=== PATIENT | female | born 1955 | race Caucasian/White ===

== ENCOUNTER → 2016-11-28 | Outpatient (CLI) | payer OTHER ==
--- NOTE | 2016-11-28 10:01 | REPMRS ---
Patient History The patient states she had a clinical breast exam in 05/2016. Patient is postmenopausal and has history of breast cancer at age 53. Family history of breast cancer in sister at age 53 and prostate cancer in brother at age 53. Malignant lumpectomy of the left breast, December 17, 2008. Malignant stereotatic breast biopsy of the left breast, December 03, 2008. Radiation therapy of the left breast, 2008. Benign lumpectomy of the right breast, 2006. Taking unspecified hormones for 8 years. Digital Woman Screen Mammo: November 28, 2016 - Exam #: [id number] Bilateral CC and MLO view(s) were taken. Technologist: Melissa Johnston, Technologist Prior study comparison: November 25, 2015, digital woman screen mammo performed at [facility]. October 27, 2014, digital woman screen mammo performed at [facility]. FINDINGS: There are scattered fibroglandular densities. There has been no change in the appearance of the mammogram from the prior studies. There is a mild amount of residual fibroglandular tissue which is fairly symmetric. There is no interval development of dominant mass, architectural distortion, or clustered microcalcification suggestive of malignancy. ASSESSMENT: BI-RADS/ACR category 1 mammogram. Negative. Recommendation Routine screening mammogram in 1 year (for women over age 40). This mammogram was interpreted with the aid of an FDA-approved computer-aided dectection system. Electronically Signed By: Joao Streeter MD 11/28/16 [id number]
== END ==
LOC: M WHC 07:52
PROVIDERS: ATTEND Internal Medicine Medical Oncology
DX: Z12.31 Encounter for screening mammogram for malignant neoplasm of breast (principal); Z78.0 Asymptomatic menopausal state; Z85.3 Personal history of malignant neoplasm of breast

== ENCOUNTER → 2017-03-31 | Outpatient (CLI) | payer OTHER ==
[2017-03-31 09:55] LABS: ALBUMIN 3.5 GM/DL (3.2-5.2); ALBUMIN/GLOBULIN RATIO 0.97 (1.00-1.93); ALKALINE PHOSPHATASE 69 U/L (45-117); ALT/SGPT 25 U/L (12-78); ANION GAP 5 MEQ/L (8-16); AST/SGOT 20 U/L (15-37); BILIRUBIN,TOTAL 0.5 MG/DL (0.2-1.0); BLOOD UREA NITROGEN 17 MG/DL (7-18); CALCIUM LEVEL 9.2 MG/DL (8.8-10.2); CARBON DIOXIDE LEVEL 29 MEQ/L (21-32); CHLORIDE LEVEL 109 MEQ/L (98-107); CHOLESTEROL LEVEL 181 MG/DL (<200); CREATININE FOR GFR 0.85 MG/DL (0.55-1.02); GLOMERULAR FILTRATION RATE > 60.0 (>45); GLUCOSE, FASTING 85 MG/DL (80-110); POTASSIUM SERUM 4.7 MEQ/L (3.5-5.1); SODIUM LEVEL 143 MEQ/L (136-145); TOTAL PROTEIN 7.1 GM/DL (6.4-8.2); TRIGLYCERIDES LEVEL 73 MG/DL (<150)
== END ==
LOC: M LAB 07:42
PROVIDERS: ATTEND Family Medicine
DX: Z00.00 Encounter for general adult medical examination without abnormal findings (principal)

== ENCOUNTER → 2017-07-03 | Outpatient (CLI) | payer OTHER | LOC: M WHC 08:25 | DX: Z78.0 Asymptomatic menopausal state (principal); Z79.899 Other long term (current) drug therapy | CPT/HCPCS: 77080 ==

== ENCOUNTER → 2017-12-01 | Outpatient (CLI) | payer OTHER | LOC: M WHC 07:56 | DX: Z12.31 Encounter for screening mammogram for malignant neoplasm of breast (principal); Z85.3 Personal history of malignant neoplasm of breast | CPT/HCPCS: 77067 ==

== ENCOUNTER → 2019-01-14 | Outpatient (CLI) | payer MEDICARE ==
[~2019-01-14] MED LIST: CALT1TAB PO; MULTCAP PO
--- NOTE | 2019-01-14 12:08 | REPMRS ---
Patient History The patient states she had a clinical breast exam in 12/2018. Patient is postmenopausal, has history of cancer in the left breast at age 53, and had previous chest radiation therapy at age 53. Family history of breast cancer at age 53 in sister, prostate cancer at age 53 in brother. Malignant lumpectomy of the left breast, December 17, 2008. Malignant stereotatic breast biopsy of the left breast, December 03, 2008. Radiation therapy of the left breast, 2008. Benign lumpectomy of the right breast, 2006. Taking unspecified hormones for 10 years. 3D TOMOSYNTHESIS WAS PERFORMED. Digital Woman Screen Mammo: January 14, 2019 - Exam #: [id number] Bilateral CC and MLO view(s) were taken. Technologist: Ruchi Samuels, Technologist Prior study comparison: December 01, 2017, bilateral digital woman screen mammo performed at [facility]. November 28, 2016, digital woman screen mammo performed at [facility] [facility]. FINDINGS: There are scattered fibroglandular densities. There has been no change in the appearance of the mammogram from the prior studies. There is a mild amount of residual fibroglandular tissue which is fairly symmetric. There is no interval development of dominant mass, architectural distortion, or clustered microcalcification suggestive of malignancy. Assessment: BI-RADS/ACR category 1 mammogram. Negative Mammogram. Recommendation Routine screening mammogram in 1 year (for women over age 40). This mammogram was interpreted with the aid of an FDA-approved computer-aided dectection system. Electronically Signed By: Joao Streeter MD 01/14/19 [id number]
== END ==
LOC: M WHC 09:26
PROVIDERS: ATTEND Nurse Practitioner Family
DX: Z12.31 Encounter for screening mammogram for malignant neoplasm of breast (principal); Z85.3 Personal history of malignant neoplasm of breast; Z78.0 Asymptomatic menopausal state; Z92.3 Personal history of irradiation; Z80.3 Family history of malignant neoplasm of breast

== ENCOUNTER → 2019-03-14 | Outpatient (REF) | payer MEDICARE ==
[2019-03-19 16:47] LABS: HPV HYBRID CAPTURE II Negative (Negative)
== END ==
LOC: M SFHCWAGY 13:59
PROVIDERS: ATTEND Nurse Practitioner Women's Health
DX: Z12.4 Encounter for screening for malignant neoplasm of cervix (principal)
CPT/HCPCS: 87624; G0101; G0123

== ENCOUNTER 2019-07-19 18:26 | Emergency (ER) | payer MEDICARE, SELFPAY ==
[~2019-07-19] VITALS: Ht 165.1 cm; Wt 88.6 kg
--- NOTE | 2019-07-19 19:28 | REPVR ---
PROCEDURE INFORMATION: Exam: CT Head Without Contrast Exam date and time: 07/19/2019 6:57 PM Age: 64 years old Clinical indication: Injury or trauma; Fall; Initial encounter; Blunt trauma (contusions or hematomas); Additional info: Fall outside, blunt force to head, no loc TECHNIQUE: Imaging protocol: Computed tomography of the head without contrast. Radiation optimization: All CT scans at this facility use at least one of these dose optimization techniques: automated exposure control; mA and/or kV adjustment per patient size (includes targeted exams where dose is matched to clinical indication); or iterative reconstruction. COMPARISON: CT Head without contrast 07/02/2013 1:07 PM FINDINGS: Brain: Age-related volume loss. No acute intracranial hemorrhage, midline shift or mass effect. No evidence of cerebral edema. Ventricles: No hydrocephalus. Bones/joints: Unremarkable. No acute fracture. Sinuses: Visualized sinuses are unremarkable. No fluid levels. Mastoid air cells: Mild partial opacification of the right mastoid tip. Soft tissues: Unremarkable. IMPRESSION: No acute intracranial abnormality. Electronically signed by: Socrates Rider On 07/19/2019 19:28:08 PM
--- NOTE | 2019-07-19 19:31 | REPVR ---
PROCEDURE INFORMATION: Exam: CT Cervical Spine Without Contrast Exam date and time: 07/19/2019 6:57 PM Age: 64 years old Clinical indication: Injury or trauma; Fall; Initial encounter; Blunt trauma; Additional info: Fall outside, blunt force to head, no loc TECHNIQUE: Imaging protocol: Computed tomography images of the cervical spine without contrast. Radiation optimization: All CT scans at this facility use at least one of these dose optimization techniques: automated exposure control; mA and/or kV adjustment per patient size (includes targeted exams where dose is matched to clinical indication); or iterative reconstruction. COMPARISON: No relevant prior studies available. FINDINGS: Vertebrae: Trace anterolisthesis C7 on T1. Vertebral body heights are preserved. Nzup-dn-ycsjgual degenerative change about the dens. Mild prevertebral osteophytosis. There are bilateral facet joint degenerative changes. No acute cervical spine fracture. Discs/Spinal canal/Neural foramina: No definite significant central canal stenosis. Scattered cervical foraminal stenoses. Soft tissues: Unremarkable. Thyroid: 7 mm left thyroid calcified nodule. Lungs: Lung apices are normal. Pleural space: No visible pneumothorax. IMPRESSION: No acute cervical spine fracture. COMMENT: Consistent with the [employer]'s Incidental Findings Committee white paper (J Am Vivian Radiol 2015): In patients aged 35 years and older with an incidental thyroid nodule equal to or greater than 1.[address], MRI or extrathyroidal US, further evaluation with dedicated thyroid US is recommended for patients with normal life expectancy and without comorbidities. For smaller nodules without suspicious features, no further evaluation or follow up is recommended. Electronically signed by: Socrates Rider On 07/19/2019 19:30:59 PM
[2019-07-19 20:32] VITALS: BP 134/82
--- NOTE | 2019-07-19 21:43 | REP ---
Clinical: Trauma with pain and tenderness involving the third digit. Technique: AP, lateral, bilateral oblique views of the left hand. Findings: Age-related osteopenia and early advanced osteoarthritic degenerative changes involving the hand and wrist. No obvious acute fracture identified, but evaluation specifically of the wrist is limited due to technique and osteopenia/degenerative changes. No subcutaneous emphysema or foreign body. Impression: Osteopenia and early advanced osteoarthritic degenerative changes of the hand and wrist. No obvious acute fracture or dislocation identified. If the patient remains symptomatic consider further investigation including CT or MRI as necessary. Electronically Signed by Kunal Boston MD 07/19/2019 09:35 P
--- NOTE | 2019-07-20 07:53 | ED PDOC ---
Post-Departure Follow-Up certitied letter sent to pt re formal read of ct c spine needs fu for thyroid no dule obtain pcp name and fax. if no pcp refer to [facility], give number, fax there Rocky Elliott MD Jul 20, 2019 07:53
== END 2019-07-19 20:38 | disposition home or self-care (01) ==
LOC: M ED 18:26
DX: S66.511A Strain of intrinsic muscle, fascia and tendon of left index finger at wrist and hand level, initial encounter (principal); S00.03XA Contusion of scalp, initial encounter; W01.198A Fall on same level from slipping, tripping and stumbling with subsequent striking against other object, initial encounter; Y92.019 Unspecified place in single-family (private) house as the place of occurrence of the external cause; M85.842 Other specified disorders of bone density and structure, left hand; M19.042 Primary osteoarthritis, left hand

== ENCOUNTER → 2019-08-02 | Outpatient (CLI) | payer MEDICARE ==
--- NOTE | 2019-08-02 13:34 | REPMRS ---
Patient History The patient states she had a clinical breast exam in 2019. Family history of breast cancer at age 53 in sister, prostate cancer at age 53 in brother. Malignant lumpectomy of the left breast, December 17, 2008. Malignant stereotatic breast biopsy of the left breast, December 03, 2008. Radiation therapy of the left breast, 2008. Benign lumpectomy of the right breast, 2006. Taking unspecified hormones for 10 years. Diagnostic Unilateral Mammo: Left Breast - August 02, 2019 - Exam #: [id number] CC and MLO view(s) were taken of the left breast. Technologist: Teodora Castaneda, Technologist Prior study comparison: January 14, 2019, bilateral digital woman screen mammo performed at [facility]. December 01, 2017, bilateral digital woman screen mammo performed at [facility]. November 28, 2016, digital woman screen mammo performed at [facility]. FINDINGS: There are scattered fibroglandular densities. There has been no change in the appearance of the leftThere are stable post treatment changes in the left breast. breast parenchyma in the interval since the prior examination. No mass, architectural distortion, or microcalcific grouping has developed. No suspicious finding. 3-D tomosynthesis shows no additional findings. Assessment: BI-RADS/ACR category 2 mammogram. Benign Findings. Recommendation Routine screening mammogram of both breasts in 6 months. This mammogram was interpreted with the aid of an FDA-approved computer-aided dectection system. Electronically Signed By: Ti Ramhan MD 08/02/19 [id number]
== END ==
LOC: M WHC 12:55
PROVIDERS: ATTEND Internal Medicine Hematology & Oncology
DX: N63.20 Unspecified lump in the left breast, unspecified quadrant (principal)
CPT/HCPCS: 77065; G0279

== ENCOUNTER → 2019-08-08 | Outpatient (CLI) | payer MEDICARE ==
--- NOTE | 2019-08-08 11:55 | REP ---
THYROID SONOGRAPHY: HISTORY: The patient is referred for ultrasound-guided needle biopsy of a calcific thyroid nodule seen on CT study of the neck done July 19, 2019. There is a previous history of breast carcinoma. Comparison CT study of the chest is reviewed with regard to the thyroid from March 13, 2014 and July 02, 2013. SONOGRAPHIC FINDINGS: Thyroid isthmus is 0.4 cm thick. Right lobe dimensions are 3.7 x 1.2 x 1.2 cm. The left thyroid lobe measures 3.6 x 1.2 x 1.2 cm. There is a 2.5 mm cyst and a 1.3 mm cyst in the lower pole of the right lobe. The lesion seen on recent CT study in the left lobe lower pole is observed to be a completely calcified nodule measuring 8 mm in greatest diameter by 6 mm. There is no visible soft tissue component. Indeed on CT study, there is a thick rim of calcification similar in density to cortical bone. The lesion is visible in retrospect dating back to the CT study of July 02, 2013 and is completely unchanged. This is felt to be benign and does not warrant ultrasound-guided needle biopsy, nor would it be feasible to accomplish given the complete calcific nature. There is no extrathyroidal mass or adenopathy. IMPRESSION: There is no suspicious thyroid nodule. There is a stable benign heavily and peripherally calcified nodule in the lower pole, unchanged dating back to July 02, 2013. FNA not warranted. Electronically Signed by Hector Rahman MD 08/08/2019 02:33 P
== END ==
LOC: M IRPRO 10:42
PROVIDERS: ATTEND Internal Medicine Hematology & Oncology
DX: E04.1 Nontoxic single thyroid nodule (principal); Z85.3 Personal history of malignant neoplasm of breast

== ENCOUNTER → 2020-02-05 | Outpatient (CLI) | payer MEDICARE ==
[~2020-02-05] MED LIST changes: +ALBU8.5H INH; +AZIT-12 PO; +BRONCHW PO; +CALCIUM 1200 MG PO; +D31000TA2 PO; +ELIQ5TAB PO; +PRED20TA PO; +SM M250T PO
--- NOTE | 2020-02-12 16:43 | REP ---
CHEST X-RAY: 2-VIEWS HISTORY: Shortness of breath. COMPARISON: Chest x-ray 07/02/2013. FINDINGS: The lungs are symmetrically aerated and clear. The pleural angles are sharp. Heart size is normal. There are surgical clips in the left axillary or left breast soft tissues unchanged. Pulmonary vasculature is not increased. No acute bony abnormality is seen. IMPRESSION: No active disease. MTDD
== END ==
LOC: M WUC 15:19
PROVIDERS: ATTEND Nurse Practitioner Family
DX: R06.02 Shortness of breath (principal)

== ENCOUNTER 2020-02-07 14:55 | Inpatient (IN) | payer MEDICARE ==
[~2020-02-07] VITALS: Ht 162.6 cm; Wt 92.3 kg
[~2020-02-07 14:55] MED LIST changes: -ALBU8.5H INH; -AZIT-12 PO; -BRONCHW PO; -CALCIUM 1200 MG PO; -D31000TA2 PO; -ELIQ5TAB PO; -PRED20TA PO; -SM M250T PO
[2020-02-07] MEDS ORDERED: AZIT-12 PO (15:06)
[2020-02-07] MEDS ORDERED: PRED20TA PO (15:06)
[2020-02-07] MEDS ORDERED: ALBU8.5H INH (15:06)
[2020-02-07 16:59] LABS: BASO % 0.1 % (0.0-1.0); EOS % 0.1 % (0.0-3.0); HEMATOCRIT 40.6 % (36.0-47.0); HEMOGLOBIN 13.6 g/dl (12.0-15.5); LYMPH # 0.9 10^3/uL (1.5-5.0); LYMPH % 5.3 % (24.0-44.0); MEAN CORPUSCULAR HEMOGLOBIN 32.6 pg (27.0-33.0); MEAN CORPUSCULAR HGB CONC 33.5 g/dl (32.0-36.5); MEAN CORPUSCULAR VOLUME 97.4 fl (80.0-96.0); MONO # 0.5 10^3/uL (0.0-0.8); MONO % 3.1 % (0.0-5.0); NEUTROPHILS # 14.6 10^3/uL (1.5-8.5); NEUTROPHILS % 90.4 % (36.0-66.0); PLATELET COUNT, AUTOMATED 275 10^3/uL (150-450); RED BLOOD COUNT 4.17 10^6/uL (4.00-5.40); WHITE BLOOD COUNT 16.2 10^3/uL (4.0-10.0)
[2020-02-07 17:35] LABS: ALBUMIN 3.6 GM/DL (3.2-5.2); ALT/SGPT 29 U/L (12-78); BILIRUBIN,DIRECT < 0.1 MG/DL (0.0-0.2); BILIRUBIN,TOTAL 0.4 MG/DL (0.2-1.0); BLOOD UREA NITROGEN 18 MG/DL (7-18); CALCIUM LEVEL 9.3 MG/DL (8.8-10.2); CARBON DIOXIDE LEVEL 22 MEQ/L (21-32); CHLORIDE LEVEL 110 MEQ/L (98-107); CK-MB VALUE MASS 2.4 NG/ML (<3.6); CPK CREATINE PHOSPHOKINASE 223 U/L (26-192); CREATININE FOR GFR 0.91 MG/DL (0.55-1.30); GLOMERULAR FILTRATION RATE > 60.0 (>45); GLUCOSE, FASTING 116 MG/DL (70-100); MB/CK RELATIVE INDEX 1.08 (< OR =4); NT-PRO BNP 914 PG/ML (<125); POTASSIUM SERUM 4.2 MEQ/L (3.5-5.1); SODIUM LEVEL 141 MEQ/L (136-145); THYROXINE (T4) 10.2 UG/DL (4.5-12.0); TOTAL PROTEIN 8.1 GM/DL (6.4-8.2); TROPONIN I 0.03 NG/ML (< 0.10)
[2020-02-07] MEDS ORDERED: ISOVUE-370 76% 100ML VIAL As Ordered ONE (17:42)
--- NOTE | 2020-02-07 18:52 | REPVR ---
PROCEDURE INFORMATION: Exam: CT Angiography Chest With Contrast Exam date and time: 02/07/2020 5:43 PM Age: 64 years old Clinical indication: Shortness of breath; Additional info: SOB; HX of CA; R/O pe TECHNIQUE: Imaging protocol: Computed tomographic angiography of the chest with intravenous contrast. 3D rendering (Not supervised by radiologist): MIP and/or 3D reconstructed images were created by the technologist. Radiation optimization: All CT scans at this facility use at least one of these dose optimization techniques: automated exposure control; mA and/or kV adjustment per patient size (includes targeted exams where dose is matched to clinical indication); or iterative reconstruction. Contrast material: ISOVUE 370; Contrast volume: 75 ml; Contrast route: INTRAVENOUS (IV); COMPARISON: CT ANGIO CHEST 07/02/2013 2:06 PM FINDINGS: Pulmonary arteries: There is filling defects in bilateral main pulmonary arteries extending to one of the left upper lobe segmental, lingular and multiple left lower lobe segmental and subsegmental pulmonary arteries. Filling defect in multiple right lower lobe segmental and subsegmental pulmonary arteries as well as right upper lobe segmental artery. Aorta: Unremarkable. No aortic aneurysm. No aortic dissection. Lungs: Unremarkable. No consolidation. No masses. Pleural space: Unremarkable. No pneumothorax. No pleural effusion. Heart: There is straightening of the ventricular septum suspicious for right ventricular strain. Lymph nodes: Unremarkable. No enlarged lymph nodes. Bones/joints: Unremarkable. No acute fracture. Soft tissues: Unremarkable. Other findings: Moderate thrombus load. IMPRESSION: Acute pulmonary embolism involving bilateral main pulmonary arteries and the bilateral upper and lower lobe segmental and subsegmental arteries. Moderate thrombus load. Possible right ventricular strain. Electronically signed by: Ry King On 02/07/2020 18:52:06 PM
[2020-02-07] MEDS ORDERED: HEPARIN DRIP 25,000 UNITS in IV 1 EA IV SCH (18:57)
[2020-02-07] MEDS ORDERED: HEPARIN SOD (PORCINE) 5000UNITS/ML 1ML VIAL/SYRINGE IV ONE (19:00)
[2020-02-07 19:30] LABS: INR 0.94; PROTHROMBIN TIME 12.8 SECONDS (11.8-14.0)
[2020-02-07] MEDS ORDERED: ACETAMINOPHEN TAB 650MG DOSE (2X325MG) PO PRN (20:15)
[2020-02-07] MEDS ORDERED: MOM 30ML SUSPENSION UDC PO PRN (20:15)
[2020-02-07 22:30] VITALS: BP 138/68
[2020-02-07] MEDS ORDERED: ENOXAPARIN 100MG/1ML SYRINGE (J1650 PER 10MG) SC SCH (23:00)
--- NOTE | 2020-02-07 23:07 | HPEPDOC ---
[facility] Medical History & Physical Date of Admission Feb 07, 2020 Date of Service: Feb 07, 2020 Primary Care Physician: Juanita Fair Attending Physician: IRIS ARIZMENDI MD History and Physical TIME OF SERVICE: 907 PM CHIEF COMPLAINT: difficulties breathing HISTORY OF PRESENT ILLNESS: This 70 yr old F w presented w c/o dyspnea that begun on Monday or Monday & is worse when she is climbing stairs; she went to an Urgent Care clinic was told that her COVID test was negative and told that she may have COPD. While at doctors appointment today she was found to have low O2 sats in the 80s and a high HR therefore she was sent to the ER for evaluation. CT confirmed the p resence of multiple bilateral PEs. 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 HOME MEDICATIONS: Please see below. PHYSICAL EXAMINATION: Vital Signs Date Time Temp Pulse Resp B/P (MAP) Pulse Ox O2 Delivery O2 Flow Rate FiO2 02/07/20 14:55 98.0 103 16 142/92 (109) 93 Room Air GENERAL APPEARANCE: obese / well developed / NAD HEENT: EOMI CARDIOVASCULAR: RRR/NMRG / no lower extremity edema LUNGS: CTAB on RA ABDOMEN: obese MUSCULOSKELETAL: MARLIN x 4 INTEGUMENT: no pallor NEUROLOGICAL: CN 2-12 intact / speech not dysarthric PSYCHIATRIC: A & Ox 3 able to understand and follow all commands LABORATORY DATA: 02/07/20 16:43 Immature Granulocyte % (Auto) 1.0, Neutrophils (%) (Auto) 90.4H, Lymphocytes (%) (Auto) 5.3L, Monocytes (%) (Auto) 3.1, Eosinophils (%) (Auto) 0.1, Basophils (%) (Auto) 0.1, Neutrophils # (Auto) 14.6H, Lymphocytes # (Auto) 0.9L, Monocytes # (Auto) 0.5, Eosinophils # (Auto) 0.0, Basophils # (Auto) 0.0, Nucleated Red Blood Cells % (auto) 0.0, Anion Gap 9, Glomerular Filtration Rate > 60.0, Calcium Level 9.3, Total Bilirubin 0.4, Direct Bilirubin < 0.1, Aspartate Amino Transf (AST/SGOT) 32, Alanine Aminotransferase (ALT/SGPT) 29, Alkaline Phosphatase 84, Total Creatine Kinase 223H, Creatine Kinase MB 2.4, Creatine Kinase MB Relative Index 1.08, Troponin I 0.03, LD-Zce-U-Type Natriuretic Peptide 914H, Total Protein 8.1, Albumin 3.6, Albumin/Globulin Ratio 0.8L, Thyroid Stimulating Hormone (TSH) 1.440, Thyroxine (T4) 10.2 02/07/20 16:45: Prothrombin Time 12.8, Prothromb Time International Ratio 0.94, Activated Partial Thromboplast Time 29.0 02/07/20 20:20: Lactic Acid Level 1.8 IMAGING: CTA chest IMPRESSION: Acute pulmonary embolism involving bilateral main pulmonary arteries and the bilateral upper and lower lobe segmental and subsegmental arteries. Moderate thrombus load. Possible right ventricular strain. MICROBIOLOGY: Please see below. ASSESSMENT: Ms. Stevens is a 64 yr old F w a PMH of breast cancer in remission who has been feeling short of breath, was found to have hypoxia and tachycardia 2/2 bilateral PEs. PLAN: 1 Low Risk Submissive PE There are reports of a large clot burden on CT and possible RV strain on CT in the setting of euvolemia. Her SBP is > than 90, her HR is > 40 (she is not in shock), her lactic acid is <2 and her Trop is 0.03 therefore she likely has a low risk submissive PE Plan: admit to PCU / stat Echo to confirm whether she has RV strain and r/o clot in right ventricle / f/u serial lactic acid and troponins / switch from heparin drip to weight based lovenox / the day time team may consider reaching out to Hem to confirm whether she should be on lovenox for AC bc of her hx of cancer or can be switched to a NOAC in the morning 2 Hx of breast cancer Plan: f/u w Onc as scheduled 3 Leukocytosis Likely 2/2 prednisone use 4. Obesity BMI 34.7 complicates care Plan: f/u A1C to screen for DM / f/u w PCP for sleep apnea screening DVT Px n/a on AC for PE Dispo: likely home after more than 2 midnights stay LATE ENTRY 1050PM Stat Echo prelim report per estimated right ventricular systolic pressure 47-52, normal RV and LV systolic function, mild aortic valve sclerosis with mild AR Home Medications Scheduled Azithromycin (Azithromycin) 250 Mg Tablet, 250 MG PO DAILY STARTED 02/05/20 X 5 DAYS Cholecalciferol (Vitamin D3) (Vitamin D3) 1,000 Unit Tablet, 2,000 UNITS PO DAILY Magnesium (Magnesium) 250 Mg Tablet, 250 MG PO DAILY Multivitamin (Chewable-Lyla) 1 Each Tab.chew, 2 CHW PO DAILY Prednisone (Prednisone) 20 Mg Tablet, 20 MG PO BID STARTED 02/05/20 X 4 DAYS Scheduled PRN Albuterol Sulfate (Albuterol Sulfate Hfa) 8.5 Gm Hfa.aer.ad, 2 PUFFS INH Q4-6HP PRN for SHORTNESS OF BREATH Allergies Coded Allergies: No Known Allergies (Verified , 12/17/08) A-FIB/CHADSVASC A-FIB History Current/History of A-Fib/PAF?: No Current PO Anticoag Therapy: No IRIS ARIZMENDI MD Feb 07, 2020 23:07
[2020-02-08] VITALS: BP 142/84
[2020-02-08] MEDS ORDERED: SM M250T PO (00:58)
[2020-02-08] MEDS ORDERED: BRONCHW PO (00:58)
[2020-02-08] MEDS ORDERED: D31000TA2 PO (00:58)
[2020-02-08] MEDS ORDERED: ALBUTEROL 90 MCG/ACT 8GM HFA INHALER INH PRN (01:30)
[2020-02-08 04:00] VITALS: BP 120/71
[2020-02-08 05:23] LABS: HEMATOCRIT 40.4 % (36.0-47.0); HEMOGLOBIN 13.3 g/dl (12.0-15.5); MEAN CORPUSCULAR HEMOGLOBIN 32.2 pg (27.0-33.0); MEAN CORPUSCULAR HGB CONC 32.9 g/dl (32.0-36.5); MEAN CORPUSCULAR VOLUME 97.8 fl (80.0-96.0); PLATELET COUNT, AUTOMATED 259 10^3/uL (150-450); RED BLOOD COUNT 4.13 10^6/uL (4.00-5.40); WHITE BLOOD COUNT 11.9 10^3/uL (4.0-10.0)
[2020-02-08 05:55] LABS: BLOOD UREA NITROGEN 16 MG/DL (7-18); CALCIUM LEVEL 8.6 MG/DL (8.8-10.2); CARBON DIOXIDE LEVEL 26 MEQ/L (21-32); CHLORIDE LEVEL 110 MEQ/L (98-107); CREATININE FOR GFR 0.87 MG/DL (0.55-1.30); GLOMERULAR FILTRATION RATE > 60.0 (>45); GLUCOSE, FASTING 85 MG/DL (70-100); MAGNESIUM LEVEL 2.4 MG/DL (1.8-2.4); SODIUM LEVEL 142 MEQ/L (136-145); TROPONIN I 0.02 NG/ML (< 0.10)
[2020-02-08 08:00] VITALS: BP 140/90; O2SAT 95
[2020-02-08 09:00] VITALS: O2SAT 96
[2020-02-08] MEDS ORDERED: predniSONE 20 MG TAB PO SCH (09:00)
[2020-02-08 10:00] VITALS: O2SAT 96
[2020-02-08] MEDS ORDERED: HEPARIN SOD (PORCINE) 5000UNITS/ML 1ML VIAL/SYRINGE IV PRN (10:45)
[2020-02-08 12:00] VITALS: BP 132/78
[2020-02-08] MEDS ORDERED: HEPARIN DRIP 25,000 UNITS in IV 1 EA IV SCH (12:00)
[2020-02-08 12:36] LABS: HEMATOCRIT 41.2 % (36.0-47.0); HEMOGLOBIN 13.8 g/dl (12.0-15.5); MEAN CORPUSCULAR HEMOGLOBIN 33.1 pg (27.0-33.0); MEAN CORPUSCULAR HGB CONC 33.5 g/dl (32.0-36.5); MEAN CORPUSCULAR VOLUME 98.8 fl (80.0-96.0); PLATELET COUNT, AUTOMATED 283 10^3/uL (150-450); RED BLOOD COUNT 4.17 10^6/uL (4.00-5.40); WHITE BLOOD COUNT 9.4 10^3/uL (4.0-10.0)
[2020-02-08 12:53] LABS: INR 1.05; PROTHROMBIN TIME 13.9 SECONDS (11.8-14.0)
[2020-02-08 12:54] LABS: PARTIAL THROMBOPLASTIN TIME 33.9 SECONDS (25.0-38.4)
--- NOTE | 2020-02-08 13:48 | HPEPDOC ---
[facility] Medical History & Physical Date of Admission Feb 07, 2020 Date of Service: Feb 08, 2020 Attending Physician: RAMON ARELLANO MD Vital Signs Vital Signs Date Time Temp Pulse Resp B/P (MAP) Pulse Ox O2 Delivery O2 Flow Rate FiO2 02/08/20 12:00 97.8 75 26 132/78 (96) 97 Nasal Cannula 2.0 Laboratory Data Labs 24H Laboratory Tests 2 02/07/20 16:43: Immature Granulocyte % (Auto) 1.0, Neutrophils (%) (Auto) 90.4H, Lymphocytes (%) (Auto) 5.3L, Monocytes (%) (Auto) 3.1, Eosinophils (%) (Auto) 0.1, Basophils (%) (Auto) 0.1, Neutrophils # (Auto) 14.6H, Lymphocytes # (Auto) 0.9L, Monocytes # (Auto) 0.5, Eosinophils # (Auto) 0.0, Basophils # (Auto) 0.0, Nucleated Red Blood Cells % (auto) 0.0, Anion Gap 9, Glomerular Filtration Rate > 60.0, Calcium Level 9.3, Total Bilirubin 0.4, Direct Bilirubin < 0.1, Aspartate Amino Transf (AST/SGOT) 32, Alanine Aminotransferase (ALT/SGPT) 29, Alkaline Phosphatase 84, Total Creatine Kinase 223H, Creatine Kinase MB 2.4, Creatine Kinase MB Relative Index 1.08, Troponin I 0.03, RN-Chl-V-Type Natriuretic Peptide 914H, Total Protein 8.1, Albumin 3.6, Albumin/Globulin Ratio 0.8L, Th yroid Stimulating Hormone (TSH) 1.440, Thyroxine (T4) 10.2 02/07/20 16:45: Prothrombin Time 12.8, Prothromb Time International Ratio 0.94, Activated Partial Thromboplast Time 29.0 02/07/20 20:20: Lactic Acid Level 1.8 02/08/20 05:11: Nucleated Red Blood Cells % (auto) 0.0, Anion Gap 6L, Glomerular Filtration Rate > 60.0, Calcium Level 8.6L, Troponin I 0.02#, Lactic Acid Level 0.9, Magnesium Level 2.4 02/08/20 12:15: Nucleated Red Blood Cells % (auto) 0.0, Prothrombin Time 13.9, Prothromb Time International Ratio 1.05, Activated Partial Thromboplast Time 33.9 CBC/BMP Laboratory Tests 02/07/20 16:43 02/08/20 05:11 02/08/20 12:15 Microbiology Microbiology 02/08/20 Respiratory Virus Panel (PCR) ([facility]) - Final, Complete Home Medications Scheduled Cholecalciferol (Vitamin D3) (Vitamin D3) 1,000 Unit Tablet, 2,000 UNITS PO D AILY Magnesium (Magnesium) 250 Mg Tablet, 250 MG PO DAILY Multivitamin (Chewable-Lyla) 1 Each Tab.chew, 2 CHW PO DAILY Scheduled PRN Albuterol Sulfate (Albuterol Sulfate Hfa) 8.5 Gm Hfa.aer.ad, 2 PUFFS INH Q4-6HP PRN for SHORTNESS OF BREATH Allergies Coded Allergies: No Known Allergies (Verified , 12/17/08) RAMON ARELLANO MD Feb 08, 2020 13:48
--- NOTE | 2020-02-08 17:22 | DS.PDOC ---
Discharge Summary General Date of Admission Feb 07, 2020 at 20:01 Date of Discharge 02/08/20 Attending Physician: RAMON ARELLANO MD Discharge Summary PROCEDURES PERFORMED DURING STAY: None. ADMITTING/DISCHARGE DIAGNOSES: 1. Acute PE b/l pulm arteries, b/l upper/lower segmental/subsegmental arteries 2. Acute DVT LLE 3. H/o Breast ca 4. H/o Obesity COMPLICATIONS/CHIEF COMPLAINT: SOB HISTORY OF PRESENT ILLNESS/HOSPITAL COURSE: As per medical records: This 70 yr old F w PMHx ER/CA + HER 2 Neg Infiltrating ductal carcinoma of the left breast diagnosed 11 yrs ago in remission s/p radi ation therapy, lumpectomy and adjuvant hormonal tx presented w c/o dyspnea that begun on Monday or Monday & is worse when she is climbing stairs; she went to an Urgent Care clinic was told that her COVID test was negative and told that she may have COPD. While at doctors appointment today she was found to have low O2 sats in the 80s and a high HR therefore she was sent to the ER for evaluatio n. CT confirmed the presence of multiple bilateral PEs. Discussed case with Dr. Chery at [facility] who recommends transfer for possible thrombolysis. Appreciate Dr. Charles for accepting pt. Pt is hemodynamically stable. Lovenox changed to heparin drip for possible intervention at [facility]. Discussed risks/benefits of anticoagulation with pt who is agreeable. Discussed with daughter and patient, who are agreeable. +DVT as LE US; defer need for IVC until eval at [facility] given moderate thrombus burden on CTA chest. A MOLST form was also completed to reflect the patient's wishes of DNR/DNI. DISCHARGE MEDICATIONS: Please see below. ALLERGIES: Please see below. PHYSICAL EXAMINATION ON DISCHARGE: Vitals: (see below) General: No acute distress, laying comfortably in bed. HEENT: Moist mucous membranes. Neck: No JVD or lymphadenopathy Cardiac: RRR, No murmurs Pulm: Diminished at the bases b/l. No wheezing, rhonchi Abd: NT/ND + BS Ext: No edema or cyanosis LABORATORY DATA: Please see below. IMAGING: CTA Chest 02/08/20 IMPRESSION: Acute pulmonary embolism involving bilateral main pulmonary arteries and the bilateral upper and lower lobe segmental and subsegmental arteries. Moderate thrombus load. Possible right ventricular strain. I spoke with the radiologist Dr. Morales who notes RV-LV ratio is 1 and is unable to put an addendum onto the current read. U/S LE Pre-wick + DVT LLE distal femoral superficial PROGNOSIS: Fair ACTIVITY: As tolerated. DIET: Regular DISCHARGE PLAN/DISPOSITION: [facility] under care of Dr. Charles DISCHARGE INSTRUCTIONS: 1. F/u with PCP, Heme/onc as recommended by [facility]. DISCHARGE CONDITION: Stable. TIME SPENT ON DISCHARGE: 45 minutes. Vital Signs/I&Os Vital Signs Date Time Temp Pulse Resp B/P (MAP) Pulse Ox O2 Delivery O2 Flow Rate FiO2 02/08/20 12:00 2.0 02/08/20 12:00 97.8 75 26 132/78 (96) 97 Nasal Cannula I&O- Last 24 Hours up to 6 AM 02/08/20 06:00 Intake Total 448 ml Output Total 0 ml Balance 448 ml Laboratory Data Labs 24H Laboratory Tests 2 02/07/20 20:20: Lactic Acid Level 1.8 02/08/20 05:11: Lactic Acid Level 0.9, Nucleated Red Blood Cells % (auto) 0.0, Anion Gap 6L, Glomerular Filtration Rate > 60.0, Calcium Level 8.6L, Magnesium Level 2.4, Troponin I 0.02# 02/08/20 12:15: Nucleated Red Blood Cells % (auto) 0.0, Prothrombin Time 13.9, Prothromb Time International Ratio 1.05, Activated Partial Thromboplast Time 33.9 CBC/BMP Laboratory Tests 02/08/20 05:11 02/08/20 12:15 Microbiology Microbiology 02/08/20 Respiratory Virus Panel (PCR) ([facility]) - Final, Complete Discharge Medications Scheduled Cholecalciferol (Vitamin D3) (Vitamin D3) 1,000 Unit Tablet, 2,000 UNITS PO DAILY, (Reported) Magnesium (Magnesium) 250 Mg Tablet, 250 MG PO DAILY, (Reported) Multivitamin (Chewable-Lyla) 1 Each Tab.chew, 2 CHW PO DAILY, (Reported) Scheduled PRN Albuterol Sulfate (Albuterol Sulfate Hfa) 8.5 Gm Hfa.aer.ad, 2 PUFFS INH Q4-6HP PRN for SHORTNESS OF BREATH, (Reported) Allergies Coded Allergies: No Known Allergies (Verified , 12/17/08) RAMON ARELLANO MD Feb 08, 2020 17:22
--- NOTE | 2020-02-11 13:55 | ECHO ---
DATE OF PROCEDURE: 02/07/2020 Age: 64 Gender: Female Height: 160 cm Weight: 91 kg REFERRING PHYSICIAN: Juanita Zarate MD INDICATION: Pulmonary embolism. MEASUREMENTS: 2D Measurements: Left atrium 3.5 cm Interventricular septum 1.10 cm Posterior wall 1.20 cm Left ventricle diastole 4.1 cm Aortic root 3.0 cm Inferior vena cava 0.9 cm (more than 50% respiratory variation) Doppler Measurements: Trace aortic regurgitation Aortic valve velocity 103 cm/s Very mild mitral regurgitation Mitral E velocity 74.6 cm/s Mitral A velocity 96.0 cm/s Mild tricuspid regurgitation Estimated right ventricular systolic pressure 47-52 mmHg Estimated right atrial pressure 5-10 mmHg No pulmonic regurgitation Pulmonary acceleration time 53 msec MITRAL ANNULAR TISSUE DOPPLER E prime septal 8.2 cm/s, E prime lateral 7.9 cm/s DESCRIPTION: Rhythm was sinus. Image quality was moderately technically difficult. This was a 2D, M-mode, color flow Doppler, and pulsed wave Doppler examination including mitral annular tissue Doppler. CONCLUSIONS: 1. Suggestive of moderate elevation of estimated right ventricular systolic pressure (47-52 mmHg). Mild tricuspid regurgitation. Normal right ventricle size and systolic function. 2. Normal left ventricle internal dimensions and wall thickness. Normal regional LV wall motion and wall thickening. Normal LV systolic function. LVEF 55% by visual estimate. Grade 1 LV diastolic dysfunction (impaired relaxation filling pattern). 3. Mild aortic valve sclerosis with a 3-cuspid aortic valve. Trace aortic regurgitation. 4. No pericardial effusion. 5. Otherwise normal appearing echocardiogram Doppler findings. [facility]
[2020-02-19] MEDS ORDERED: ELIQ5TAB PO (09:17)
--- NOTE | 2020-02-20 15:40 | ECGEPIP ---
[facility] - ED Test Date: 2020-02-07 Pat Name: SERENA HERNANDEZ Department: Room: [place] [address] Gender: Female [employer]: PRIMO : 1955 Requested By: RASHEL VALE Order Number: [id number] Reading MD: Radha Smalls Measurements Intervals Capac Rate: 86 P: 52 NJ: 124 QRS: -33 QRSD: 92 T: 67 QT: 352 QTc: 423 Interpretive Statements SINUS RHYTHM MARKED LEFT AXIS DEVIATION NONSPECIFIC T-WAVE ABNORMALITY ABNORMAL ECG SEE SCANNED DOWNTIME REPORT
--- NOTE | 2020-03-06 15:17 | REP ---
BILATERAL LOWER EXTREMITY DOPPLER ULTRASOUND CLINICAL: Pulmonary embolus. TECHNIQUE: Real-time king scale and color Doppler evaluation using linear high frequency transducer. FINDINGS: Right lower extremity is normal and without evidence for deep venous thrombosis. Left lower extremity demonstrates acute thrombus involving the distal superficial femoral vein through the popliteal vein and peroneal trunk. IMPRESSION: * Deep venous thrombosis involving the left lower extremity. * Normal right lower extremity without deep veinous thrombosis. MTDD
[2020-03-25] MEDS ORDERED: CALCIUM 1200 MG PO (13:43)
== END 2020-02-08 15:43 | disposition short-term general hospital (02) | DRG 176 ==
LOC: M ED 14:55 → M ED INP 20:01 → ENRESERV 21:04 → CANRESERV 21:04 → ENRESERV 21:56 → M PCU 22:20
PROVIDERS: ADMIT Internal Medicine; ATTEND Internal Medicine
DX: I26.99 Other pulmonary embolism without acute cor pulmonale (principal); I82.412 Acute embolism and thrombosis of left femoral vein; Z85.3 Personal history of malignant neoplasm of breast; E66.9 Obesity, unspecified; Z79.899 Other long term (current) drug therapy; Z68.34 Body mass index [BMI] 34.0-34.9, adult

== ENCOUNTER → 2020-02-25 | Outpatient (CLI) | payer MEDICARE ==
[~2020-02-25] MED LIST changes: +ALBU8.5H INH; +AZIT-12 PO; +BRONCHW PO; +CALCIUM 1200 MG PO; +D31000TA2 PO; +ELIQ5TAB PO; +PRED20TA PO; +SM M250T PO
--- NOTE | 2020-02-25 12:28 | REPMRS ---
Patient History The patient states she had a clinical breast exam in 2019. Family history of breast cancer at age 53 in sister, prostate cancer at age 53 in brother. Malignant lumpectomy of the left breast, December 17, 2008. Malignant stereotatic breast biopsy of the left breast, December 03, 2008. Radiation therapy of the left breast, 2008. Benign lumpectomy of the right breast, 2006. Taking unspecified hormones for 10 years. Digital Woman Screen Mammo: February 25, 2020 - Exam #: [id number] Bilateral CC and MLO view(s) were taken. Technologist: Teodora Castaneda, Technologist Prior study comparison: August 02, 2019, left breast diagnostic unilateral mammo performed at [facility]. January 14, 2019, bilateral digital woman screen mammo performed at [facility]. December 01, 2017, bilateral digital woman screen mammo performed at [facility]. November 28, 2016, digital woman screen mammo performed at [facility]. FINDINGS: The breast tissue is almost entirely fat. The Volpara volumetric breast density category is: A. There are stable post treatment changes in the left breast. There has been no change in the appearance of the mammogram from the prior studies. There is no interval development of dominant mass, architectural distortion, or grouped microcalcification typical of malignancy. 3-D tomosynthesis shows no additional findings. Assessment: BI-RADS/ACR category 2 mammogram. Benign Findings. Recommendation Routine screening mammogram of both breasts in 1 year (for women over age 40). This mammogram was interpreted with the aid of an FDA-approved computer-aided dectection system. Electronically Signed By: Ti Rahman MD 02/25/20 [id number]
== END ==
LOC: M WHC 10:13
PROVIDERS: ATTEND Internal Medicine Medical Oncology
DX: Z12.31 Encounter for screening mammogram for malignant neoplasm of breast (principal); Z80.3 Family history of malignant neoplasm of breast; Z86.018 Personal history of other benign neoplasm; Z85.3 Personal history of malignant neoplasm of breast; Z92.3 Personal history of irradiation; Z79.899 Other long term (current) drug therapy

== ENCOUNTER → 2020-02-28 | Outpatient (CLI) | payer MEDICARE ==
--- NOTE | 2020-03-11 11:27 | REP ---
WHOLE BODY RADIONUCLIDE BONE SCAN HISTORY: Breast carcinoma diagnosed in 2008. Shoulder pain. History of a fall. Patient gives a history of a fall hurting her tailbone. COMPARISON: No comparison bone scan. TECHNIQUE: 22.0 mCi of Technetium-99m MDP is injected and standard whole body bone scan imaging is acquired. SCINTIGRAPHIC FINDINGS: There is uptake in bilaterally kidneys and in the urinary bladder. There is a horizontally oriented area of increased uptake transversely across the sacrococcygeal junction consistent with recent tailbone fracture. There is osteoarthritic uptake in each midfoot, bilaterally in the knees, bilaterally in the acromioclavicular joints, and in the left posterior and right posterior cervical spine facets. Mild degenerative uptake is seen in the lumbar spine as well. There is no evidence to suggest skeletal metastatic disease. IMPRESSION: No evidence of skeletal metastasis. Findings consistent with recent sacrococcygeal fracture. MTDD
== END ==
LOC: M RAD 08:12
PROVIDERS: ATTEND Internal Medicine Medical Oncology
DX: M25.519 Pain in unspecified shoulder (principal); Z85.3 Personal history of malignant neoplasm of breast
CPT/HCPCS: 78306; A9503

== ENCOUNTER → 2020-03-02 | Outpatient (CLI) | payer MEDICARE ==
[~2020-03-02] MED LIST changes: +PROHANCE 279.3MG/ML 15ML VIAL As Ordered ONE; +PROHANCE 279.3MG/ML 5ML VIAL As Ordered ONE
--- NOTE | 2020-03-11 11:29 | REP ---
MRI STUDY OF THE BRAIN WITHOUT AND WITH INTRAVENOUS (IV) GADOLINIUM HISTORY: Falls. Breast cancer. Shoulder pain. COMPARISON: Brain CT study from 07/19/2019. No comparison brain MRI. TECHNIQUE: Axial, coronal, and sagittal imaging planes are utilized. Sequences include spin echo, fast spin echo, FLAIR, and diffusion-weighted sequences. Pre- and postcontrast imaging is acquired. 18 mL of intravenous ProHance is administered. MRI FINDINGS: No bony calvarial lesion is appreciated. No intraorbital abnormality is seen. The skull base soft tissues are unremarkable. There is no MR evidence of significant paranasal sinus disease. There is mild generalized volume loss. There is no evidence of intracranial hemorrhage. Diffusion-weighted scans show no evidence to suggest acute ischemia. No extra-axial fluid collection or mass is seen. Postcontrast images demonstrate enhancement and normal vasculature. No abnormal intracranial contrast enhancement is appreciated. IMPRESSION: There is no evidence of intracranial metastasis. Mild generalized volume loss. Otherwise negative. MTDD
== END ==
LOC: M RAD 10:02
PROVIDERS: ATTEND Internal Medicine Medical Oncology
DX: C50.919 Malignant neoplasm of unspecified site of unspecified female breast (principal); Z91.81 History of falling; I67.9 Cerebrovascular disease, unspecified; Z79.899 Other long term (current) drug therapy
CPT/HCPCS: 36415; 70553; 82306; 82607; 83655; 84439; 84443; 86780; A9576; G0463

== ENCOUNTER → 2020-03-02 | Outpatient (CLI) | payer MEDICARE ==
[~2020-03-02] MED LIST changes: -PROHANCE 279.3MG/ML 15ML VIAL As Ordered ONE; -PROHANCE 279.3MG/ML 5ML VIAL As Ordered ONE
[2020-03-02 14:48] LABS: TOTAL 25(OH) VITAMIN D 56.4 NG/ML (30.0-100.0); VITAMIN B12 LEVEL 491 PG/ML (247-911)
[2020-03-02 14:52] LABS: FREE T4 1.03 NG/DL (0.76-1.46)
== END ==
LOC: M PLALAB 09:41
PROVIDERS: ATTEND Physician Assistant Medical
DX: I67.9 Cerebrovascular disease, unspecified (principal)

== ENCOUNTER → 2020-03-05 | Outpatient (CLI) | payer MEDICARE ==
--- NOTE | 2020-03-11 11:30 | REP ---
MRI OF THE LEFT SHOULDER WITHOUT CONTRAST: HISTORY: Left shoulder pain. History of falls. COMPARISON: None. TECHNIQUE: Axial, oblique coronary and oblique sagittal imaging planes utilized. T1 and T2-weighted scans are included with and without fat-saturation in the usual fashion. FINDINGS: There is a moderate glenohumeral joint effusion. There is low T2 intermediate T1 signal intensity material in the axillary recess. I cannot exclude loose bodies. This is somewhat ill-defined. There is a subacromial subdeltoid bursal effusion as well. There is a partial thickness intrasubstance T2-weighted hyperintense tear in the mid-supraspinatus tendon at 12 to 1 o'clock on the humeral head on oblique coronary T1-weighted scans along its bursal surface. There is tendinitis/tendinosis change throughout the remainder of the supraspinatus tendon. No definite full thickness tear is appreciated. There is AC joint osteoarthritic hypertrophy. Cortical and medullary bone signal intensity are otherwise normal. The biceps tendon is in the bony bicipital groove and appears intact. the infraspinatus and subsequently tendons are intact. There is some fraying of the posterior labral cartilage. No solange anterior or posterior labral cartilage tear is seen. The superior labral cartilage appears intact. IMPRESSION: Moderate size glenohumeral joint effusion with possible intraarticular loose bodies versus proteinaceous debris in the axillary recess. Subacromial/subdeltoid bursal effusion. Partial thickness supraspinatus tear with diffuse tendinosis change. AC joint osteoarthritis. MTDD
== END ==
LOC: M RAD 06:44
PROVIDERS: ATTEND Nurse Practitioner Family
DX: M25.512 Pain in left shoulder (principal); M25.412 Effusion, left shoulder; M19.012 Primary osteoarthritis, left shoulder

== ENCOUNTER → 2020-03-17 | Outpatient (CLI) | payer MEDICARE ==
--- NOTE | 2020-03-19 13:28 | DEXA ---
AP SPINE L1 - L4 1.246 0.4 2.0 LT FEMUR TOTAL 1.024 0.1 1.4 LT NECK 1.025 -0.1 1.5 RT FEMUR TOTAL 0.972 -0.3 1.0 RT NECK 0.945 -0.7 0.9 TOTAL BODY TOTAL OTHER COMMENTS: Normal Bone Densitometry of the spine and hips. The density of the spine has decreased 5.1% since the initial exam on 05/19/09 The increased 4.8% since the most recent exam on 07/03/2017. The density of the left hip has decreased 3.6% since the initial exam on 05/19/09. The density of the left hip has increased 2.9% since the most recent exam on 07/03/2017. The density of the right hip has decreased 9.4% since the initial exam on 05/19/09. The density of the right hip has decreased 2.9% since the most recent exam on 07/03/2017. FOLLOW-UP: Recommendation for the next bone density exam: 5 years. ESTEFANY
== END ==
LOC: M WHC 08:38
PROVIDERS: ATTEND Nurse Practitioner Women's Health
DX: Z13.820 Encounter for screening for osteoporosis (principal); Z79.810 Long term (current) use of selective estrogen receptor modulators (SERMs); Z78.0 Asymptomatic menopausal state
CPT/HCPCS: 77080; G0463

== ENCOUNTER → 2020-03-27 | Outpatient (CLI) | payer MEDICARE ==
--- NOTE | 2020-03-27 16:02 | REP ---
INDICATION: NON TOXIC GOITER US1/CT2 . COMPARISON: Comparison sonography August 08, 2019.. TECHNIQUE: High-resolution bilateral thyroid sonography. FINDINGS: Thyroid isthmus is 0.4 cm thick. Right lobe dimensions by ultrasound today are 3.5 x 1.2 x 1.3 cm. Left lobe measurements are 3.7 x 1.3 x 1.6 cm. The gland is slightly heterogeneous. There is a heavily calcified 7 mm nodule in the left lobe of the thyroid unchanged from the comparison study. There is a tiny 2 mm cyst in the upper pole on the right and a 5 mm cyst is seen in the lower pole on the right. These findings are unchanged from the comparison study. No new solid nodule is seen. IMPRESSION: Stable findings as above. <Electronically signed by Ti Rahman > 03/27/20 [id number]
== END ==
LOC: M RAD 14:34
PROVIDERS: ATTEND Otolaryngology
DX: E04.9 Nontoxic goiter, unspecified (principal)

== ENCOUNTER → 2020-03-27 | Outpatient (CLI) | payer MEDICARE ==
[~2020-03-27] MED LIST changes: +GASTROGRAFIN SOLUTION 30ML (Q9963) As Ordered ONE; +ISOVUE-370 76% 100ML VIAL As Ordered ONE
--- NOTE | 2020-03-27 17:23 | REP ---
INDICATION: BREAST CA W/ ABD PAIN. COMPARISON: None TECHNIQUE: Axial contrast-enhanced images from the lung bases to the pubic symphysis using 100 cc Isovue 370 intravenous contrast material. Delayed images were obtained as well as coronal and sagittal reformations.. Oral contrast administered prior to imaging. FINDINGS: Liver, spleen, pancreas, bilateral adrenal glands and kidneys are normal. The gallbladder is markedly distended without pericholecystic fluid or obvious gallstones and no evidence for biliary ductal dilatation. The enteric system including stomach, small, and large bowel appears normal. No evidence for obstruction or acute inflammatory process. Normal terminal ileum and appendix are identified in the right lower quadrant. Pelvis demonstrates normal bladder and age-appropriate uterus/adnexa. No ascites. No free air. No intraperitoneal or retroperitoneal adenopathy. Abdominal aorta and vasculature appear normal. Musculoskeletal structures are intact and without acute osseous abnormality. Lung bases demonstrate chronic appearing interstitial changes. IMPRESSION: 1. Hydropic appearance of the gallbladder without evidence for acute cholecystitis by CT evaluation. 2. No further acute abdominopelvic pathology appreciated. No evidence for metastatic disease. <Electronically signed by Kunal Boston > 03/27/20 [id number]
== END ==
LOC: M RAD 14:39
PROVIDERS: ATTEND Internal Medicine Medical Oncology
DX: C50.912 Malignant neoplasm of unspecified site of left female breast (principal); R10.9 Unspecified abdominal pain; E04.9 Nontoxic goiter, unspecified
CPT/HCPCS: 74177; 76536; Q9963; Q9967

== ENCOUNTER → 2020-04-15 | Outpatient (CLI) | payer MEDICARE ==
[~2020-04-15] MED LIST changes: -GASTROGRAFIN SOLUTION 30ML (Q9963) As Ordered ONE; -ISOVUE-370 76% 100ML VIAL As Ordered ONE
--- NOTE | 2020-04-15 11:07 | REP ---
INDICATION: ABN FINDINGS OF DX IMAGING MAIN REG. COMPARISON: Comparison CT study March 27, 2020. This was read as showing dilated gallbladder.. TECHNIQUE: Right upper quadrant sonography. FINDINGS: Real-time scanning through the right upper quadrant the abdomen demonstrates a dilated gallbladder containing shadowing calculi in its dependent portion. Gallbladder wall is not thickened. No pericholecystic fluid is seen. The stones measure up to 13 mm in size individually. There are multiple calculi. The common bile duct is normal measuring 0.5 cm in greatest diameter. No focal liver lesion is seen. There is no evidence of ascites. Limited views of pancreas show no abnormality. No mass or hydronephrosis is seen in the right kidney. Right renal dimensions are 9.3 x 4.5 x 3.4 cm. IMPRESSION: Dilated gallbladder containing multiple shadowing calculi. No wall thickening. Otherwise negative. <Electronically signed by Ti Rahman > 04/15/20 1105
== END ==
LOC: M RAD 08:32
PROVIDERS: ATTEND Internal Medicine Gastroenterology
DX: R93.89 Abnormal findings on diagnostic imaging of other specified body structures (principal)

== ENCOUNTER → 2020-11-20 | Outpatient (CLI) | payer MEDICARE, OTHER ==
--- NOTE | 2020-11-20 19:19 | REP ---
INDICATION: F/U GOITER. COMPARISON: Comparison sonography is from March 27, 2020. Comparison is made with prior chest CT studies dated February 07, 2020 and March 13, 2014.. TECHNIQUE: High-resolution bilateral thyroid sonography is performed. FINDINGS: Thyroid isthmus is 3 mm thick. Right lobe dimensions by today's sonography are 3.5 x 1.2 x 1.2 cm. The left lobe measures 3.9 x 1.2 x 1.1 cm. The thyroid gland is not considered enlarged. There is a densely calcified shadowing nodule in the left lobe measuring 1.1 x 1.1 x 0.9 cm. This is visible on comparison CT study from 2013. There is a 0.2 cm cyst in the upper pole on the right. On previous study, this measured 0.5 cm. There is a subtle hypoechoic nodule in the lower pole of the right gland visible today measuring 1.0 x 1.1 x 1.0 cm. This is visible and is felt to be unchanged from the comparison CT study of March 13, 2014 as well. This was not visualized sonographically on March 27, 2020 but is felt to correspond with remote prior CT as well as recent prior CT imaging. IMPRESSION: Stable thyroid nodules as above. <Electronically signed by Ti Rahman > 11/20/20 [id number]
== END ==
LOC: M RAD 13:14
PROVIDERS: ATTEND Otolaryngology
DX: E04.9 Nontoxic goiter, unspecified (principal)

== ENCOUNTER → 2020-12-03 | Outpatient (CLI) | payer MEDICARE | LOC: M LABSMTC 10:03 | PROVIDERS: ATTEND Specialist | DX: Z20.822 Contact with and (suspected) exposure to COVID-19 (principal) ==

== ENCOUNTER → 2021-01-06 | Outpatient (CLI) | payer MEDICARE ==
[~2021-01-06] MED LIST changes: +LIDOCAINE 1% MDV 20ML VIAL As Ordered ONE
[2021-01-06 14:20] VITALS: BP 136/68
--- NOTE | 2021-01-07 07:53 | REP ---
INDICATION: GAMA THYROID NODULES. COMPARISON: None. TECHNIQUE: The procedure was performed under the direct supervision of Dr. Rahman. The patient has a history of a densely calcified shadowing nodule in the left lobe of the thyroid measuring 1.1 x 1.1 x 0.9 cm as well as a subtle hypoechoic nodule in the lower pole of the right thyroid measuring 1 x 1.1 x 1 cm seen on a previous ultrasound dated 11/20/2020. The risks and benefits of the procedure were explained to the patient and informed consent was obtained. The thyroid nodules were localized using ultrasound guidance. The skin was prepped and draped in a sterile fashion. 6 mL of 1% lidocaine was used as a local anesthetic. The right thyroid nodule was addressed 1st. Using ultrasound guidance 4 fine-needle aspirations were obtained using 25 gauge needles. The left thyroid nodule was then addressed. Using ultrasound guidance 4 fine-needle aspirations were obtained using 25 gauge needles. The patient tolerated the procedure well and there were no immediate complications. After the appropriate amount to monitor convalescence the patient was discharged from the department. FINDINGS: None IMPRESSION: Ultrasound-guided bilateral thyroid biopsy. <Electronically signed by Gavin Stearns > 01/06/21 [id number] <Electronically signed by Ti Rahman > 01/07/21 [id number]
== END ==
LOC: M IRPRO 12:24
PROVIDERS: ATTEND Otolaryngology
DX: D34 Benign neoplasm of thyroid gland (principal); E04.9 Nontoxic goiter, unspecified

== ENCOUNTER → 2021-01-21 | Outpatient (CLI) | payer MEDICARE, OTHER ==
[~2021-01-21] MED LIST changes: -LIDOCAINE 1% MDV 20ML VIAL As Ordered ONE
[2021-01-21 13:36] LABS: ALBUMIN 3.4 GM/DL (3.2-5.2); ALT/SGPT 25 U/L (12-78); BASO % 0.4 % (0.0-1.0); BILIRUBIN,TOTAL 0.5 MG/DL (0.2-1.0); BLOOD UREA NITROGEN 12 MG/DL (7-18); CALCIUM LEVEL 9.2 MG/DL (8.8-10.2); CARBON DIOXIDE LEVEL 29 MEQ/L (21-32); CHLORIDE LEVEL 109 MEQ/L (98-107); CHOLESTEROL LEVEL 186 MG/DL (<200); CHOLESTEROL RISK RATIO 4.536 (<5); CREATININE FOR GFR 0.72 MG/DL (0.55-1.30); EOS # 0.2 10^3/uL (0.0-0.5); EOS % 1.8 % (0.0-3.0); FREE T4 1.04 NG/DL (0.76-1.46); GLOMERULAR FILTRATION RATE > 60.0 (>45); GLUCOSE, FASTING 87 MG/DL (70-100); HDL CHOLESTEROL 41 MG/DL (>40); HEMATOCRIT 40.4 % (36.0-47.0); HEMOGLOBIN 13.1 g/dl (12.0-15.5); LDL CHOLESTEROL 122 MG/DL (<100); LYMPH % 23.5 % (24.0-44.0); MEAN CORPUSCULAR HGB CONC 32.4 g/dl (32.0-36.5); MEAN CORPUSCULAR VOLUME 98.5 fl (80.0-96.0); MONO # 0.6 10^3/uL (0.0-0.8); NEUTROPHILS # 5.7 10^3/uL (1.5-8.5); NEUTROPHILS % 66.9 % (36.0-66.0); NON-HDL-C 145 MG/DL; PLATELET COUNT, AUTOMATED 296 10^3/uL (150-450); POTASSIUM SERUM 4.5 MEQ/L (3.5-5.1); SODIUM LEVEL 142 MEQ/L (136-145); TOTAL PROTEIN 6.8 GM/DL (6.4-8.2); TRIGLYCERIDES LEVEL 115 MG/DL (<150); WHITE BLOOD COUNT 8.4 10^3/uL (4.0-10.0)
== END ==
LOC: M PLALAB 10:36
PROVIDERS: ATTEND Physician Assistant Medical
DX: K21.9 Gastro-esophageal reflux disease without esophagitis (principal); K81.9 Cholecystitis, unspecified; E04.1 Nontoxic single thyroid nodule; Z13.220 Encounter for screening for lipoid disorders; Z79.899 Other long term (current) drug therapy

== ENCOUNTER → 2021-08-25 | Outpatient (CLI) | payer MEDICARE ==
[~2021-08-25] MED LIST changes: -D31000TA2 PO; +VITA100093 PO
== END ==
LOC: M RAD 11:10
PROVIDERS: ATTEND Otolaryngology
DX: E04.9 Nontoxic goiter, unspecified (principal)

== ENCOUNTER → 2022-05-17 | Outpatient (CLI) | payer MEDICARE ==
[2022-05-17 10:15] LABS: HEMOGLOBIN A1c 5.2 % (4.0-6.0)
[2022-05-17 10:53] LABS: CHOLESTEROL RISK RATIO 3.86 (<5); HDL CHOLESTEROL 50.5 MG/DL (>40); LDL CHOLESTEROL 126.9 MG/DL (<100)
[2022-05-17 10:55] LABS: FREE T4 0.97 NG/DL (0.89-1.76)
[2022-05-17 10:56] LABS: THYROID STIMULATING HORMONE 3.236 uIU/ML (0.55-4.78)
== END ==
LOC: M LAB 09:35
PROVIDERS: ATTEND Physician Assistant Medical
DX: E04.1 Nontoxic single thyroid nodule (principal); E78.00 Pure hypercholesterolemia, unspecified

== ENCOUNTER → 2023-02-06 | Outpatient (CLI) | payer MEDICARE ==
[2023-02-06 11:13] LABS: ALBUMIN 3.2 G/DL (3.2-5.2); ALKALINE PHOSPHATASE 67 U/L (46-116); ALT/SGPT 16 U/L (7.0-40); AST/SGOT 17 U/L (<34); BILIRUBIN,TOTAL 0.6 MG/DL (0.3-1.2); BLOOD UREA NITROGEN 15 MG/DL (9-23); CARBON DIOXIDE LEVEL 28 MMOL/L (20-31); CHLORIDE LEVEL 106 MMOL/L (98-107); CHOLESTEROL LEVEL 162 MG/DL (<200); CHOLESTEROL RISK RATIO 3.28 (<5); CREATININE FOR GFR 0.82 MG/DL (0.55-1.30); GLOMERULAR FILTRATION RATE > 60.0 (>45); GLUCOSE, FASTING 82 MG/DL (74-106); HDL CHOLESTEROL 49.3 MG/DL (>40); LDL CHOLESTEROL 91.7 MG/DL (<100); NON-HDL-C 112.7 MG/DL; POTASSIUM SERUM 4.8 MMOL/L (3.5-5.1); SODIUM LEVEL 138 MMOL/L (136-145); TOTAL PROTEIN 6.6 G/DL (5.7-8.2); TRIGLYCERIDES LEVEL 105 MG/DL (<150)
== END ==
LOC: M LAB 09:23
PROVIDERS: ATTEND Physician Assistant Medical
DX: E78.00 Pure hypercholesterolemia, unspecified (principal)

== ENCOUNTER → 2023-05-10 | Outpatient (CLI) | payer MEDICARE ==
[2023-05-10 11:19] LABS: ALBUMIN 3.2 G/DL (3.2-5.2); ALKALINE PHOSPHATASE 73 U/L (46-116); ALT/SGPT 21 U/L (7.0-40); AST/SGOT 25 U/L (<34); BILIRUBIN,TOTAL 0.5 MG/DL (0.3-1.2); BLOOD UREA NITROGEN 15 MG/DL (9-23); CALCIUM LEVEL 8.7 MG/DL (8.3-10.6); CARBON DIOXIDE LEVEL 28 MMOL/L (20-31); CHLORIDE LEVEL 106 MMOL/L (98-107); CREATININE FOR GFR 0.74 MG/DL (0.55-1.30); GLOMERULAR FILTRATION RATE > 60.0 (>39); GLUCOSE, FASTING 106 MG/DL (74-106); POTASSIUM SERUM 4.2 MMOL/L (3.5-5.1); SODIUM LEVEL 138 MMOL/L (136-145); TOTAL PROTEIN 6.5 G/DL (5.7-8.2)
== END ==
LOC: M LAB 10:21
PROVIDERS: ATTEND Internal Medicine Cardiovascular Disease
DX: D68.61 Antiphospholipid syndrome (principal)

== ENCOUNTER → 2023-07-14 | Outpatient (CLI) | payer MEDICARE | LOC: M PLAIMG 12:54 | PROVIDERS: ATTEND Internal Medicine | DX: R91.8 Other nonspecific abnormal finding of lung field (principal) ==

== ENCOUNTER → 2024-01-19 | Outpatient (CLI) | payer MEDICARE ==
[2024-01-19 08:01] LABS: BASO % 0.3 % (0.0-1.0); EOS # 0.1 10^3/uL (0.0-0.5); EOS % 1.7 % (0.0-3.0); HEMATOCRIT 41.2 % (36.0-47.0); HEMOGLOBIN 13.5 g/dl (12.0-15.5); LYMPH # 1.5 10^3/uL (1.5-5.0); LYMPH % 21.5 % (24.0-44.0); MEAN CORPUSCULAR HEMOGLOBIN 31.9 pg (27.0-33.0); MEAN CORPUSCULAR HGB CONC 32.8 g/dl (32.0-36.5); MEAN CORPUSCULAR VOLUME 97.4 fl (80.0-96.0); MONO # 0.5 10^3/uL (0.0-0.8); MONO % 7.2 % (2.0-8.0); NEUTROPHILS # 4.9 10^3/uL (1.5-8.5); NEUTROPHILS % 69.2 % (36.0-66.0); PLATELET COUNT, AUTOMATED 290 10^3/uL (150-450); RED BLOOD COUNT 4.23 10^6/uL (4.00-5.40); WHITE BLOOD COUNT 7.1 10^3/uL (4.0-10.0)
[2024-01-19 08:31] LABS: HEMOGLOBIN A1c 5.3 % (4.0-6.0)
[2024-01-19 08:37] LABS: ALBUMIN 3.3 G/DL (3.2-5.2); ALKALINE PHOSPHATASE 81 U/L (46-116); ALT/SGPT 30 U/L (7.0-40); AST/SGOT 29 U/L (<34); BILIRUBIN,TOTAL 0.8 MG/DL (0.3-1.2); BLOOD UREA NITROGEN 14 MG/DL (9-23); CALCIUM LEVEL 9.3 MG/DL (8.3-10.6); CARBON DIOXIDE LEVEL 29 MMOL/L (20-31); CHLORIDE LEVEL 107 MMOL/L (98-107); CHOLESTEROL LEVEL 154 MG/DL (<200); CHOLESTEROL RISK RATIO 3.52 (<5); CREATININE FOR GFR 0.87 MG/DL (0.55-1.30); GLOMERULAR FILTRATION RATE > 60.0 (>39); GLUCOSE, FASTING 86 MG/DL (74-106); HDL CHOLESTEROL 43.7 MG/DL (>40); LDL CHOLESTEROL 90.3 MG/DL (<100); NON-HDL-C 110.3 MG/DL; POTASSIUM SERUM 4.2 MMOL/L (3.5-5.1); PTH INTACT 46.4 PG/ML (18.5-88.0); SODIUM LEVEL 139 MMOL/L (136-145); TOTAL PROTEIN 6.8 G/DL (5.7-8.2); TRIGLYCERIDES LEVEL 100 MG/DL (<150)
[2024-01-19 08:39] LABS: TOTAL 25(OH) VITAMIN D 54.9 NG/ML (20.0-100.0)
== END ==
LOC: M LAB 07:21
PROVIDERS: ATTEND Physician Assistant Medical
DX: E78.00 Pure hypercholesterolemia, unspecified (principal); E55.9 Vitamin D deficiency, unspecified; K21.9 Gastro-esophageal reflux disease without esophagitis; E66.9 Obesity, unspecified; Z79.899 Other long term (current) drug therapy

== ENCOUNTER → 2024-02-28 | Outpatient (CLI) | payer MEDICARE | LOC: M RAD 13:46 | PROVIDERS: ATTEND Otolaryngology | DX: E04.9 Nontoxic goiter, unspecified (principal) ==

== ENCOUNTER → 2024-03-05 | Outpatient (CLI) | payer MEDICARE ==
[2024-03-05 10:22] LABS: FREE T4 1.03 NG/DL (0.89-1.76); THYROID STIMULATING HORMONE 2.875 uIU/ML (0.55-4.78)
[2024-03-05 11:17] LABS: TOTAL T3 126.5 NG/DL (60.0-181.0)
== END ==
LOC: M LAB 08:38
PROVIDERS: ATTEND Physician Assistant Medical
DX: E04.1 Nontoxic single thyroid nodule (principal)

== ENCOUNTER → 2024-04-08 | Outpatient (CLI) | payer MEDICARE ==
[~2024-04-08] MED LIST changes: +E-Z-GAS II EFFERVESCENT PACKET (SODIUM BICARB./CITRIC ACID/SIMETHICONE) As Ordered ONE; +E-Z-HD 98% w/w 340GM SUSP BTL As Ordered ONE; +E-Z-PAQUE 96% w/w SUSP 176GM BTL As Ordered ONE
== END ==
LOC: M RAD 08:44
PROVIDERS: ATTEND Otolaryngology
DX: R13.10 Dysphagia, unspecified (principal); K21.9 Gastro-esophageal reflux disease without esophagitis

== ENCOUNTER → 2024-04-25 | Outpatient (CLI) | payer MEDICARE ==
[~2024-04-25] MED LIST changes: -E-Z-GAS II EFFERVESCENT PACKET (SODIUM BICARB./CITRIC ACID/SIMETHICONE) As Ordered ONE; -E-Z-HD 98% w/w 340GM SUSP BTL As Ordered ONE; -E-Z-PAQUE 96% w/w SUSP 176GM BTL As Ordered ONE
== END ==
LOC: M RAD 08:57
PROVIDERS: ATTEND Physician Assistant Medical
DX: E78.00 Pure hypercholesterolemia, unspecified (principal)

== ENCOUNTER → 2024-07-18 | Outpatient (CLI) | payer MEDICARE | LOC: M PLAIMG 11:17 | PROVIDERS: ATTEND Internal Medicine | DX: R91.8 Other nonspecific abnormal finding of lung field (principal) ==

== ENCOUNTER → 2024-08-28 | Outpatient (CLI) | payer MEDICARE | LOC: M RAD 12:16 | PROVIDERS: ATTEND Otolaryngology | DX: E04.9 Nontoxic goiter, unspecified (principal) ==

== ENCOUNTER → 2024-09-26 | Outpatient (CLI) | payer MEDICARE ==
[~2024-09-26] MED LIST changes: +PROHANCE 279.3MG/ML 15ML VIAL As Ordered ONE; +PROHANCE 279.3MG/ML 5ML VIAL As Ordered ONE
== END ==
LOC: M RAD 10:41
PROVIDERS: ATTEND Physician Assistant Medical
DX: D05.12 Intraductal carcinoma in situ of left breast (principal); R92.313 Mammographic fatty tissue density, bilateral breasts
CPT/HCPCS: A9576; C8908

== ENCOUNTER → 2025-02-24 | Outpatient (CLI) | payer MEDICARE ==
[~2025-02-24] MED LIST changes: -PROHANCE 279.3MG/ML 15ML VIAL As Ordered ONE; -PROHANCE 279.3MG/ML 5ML VIAL As Ordered ONE
[2025-02-24 09:27] LABS: BASO # 0.0 10^3/uL (0.0-0.2); BASO % 0.3 % (0.0-1.0); EOS # 0.1 10^3/uL (0.0-0.5); EOS % 1.4 % (0.0-3.0); LYMPH # 1.4 10^3/uL (1.5-5.0); LYMPH % 24.7 % (24.0-44.0); MONO # 0.5 10^3/uL (0.0-0.8); MONO % 8.3 % (2.0-8.0); NEUTROPHILS # 3.8 10^3/uL (1.5-8.5); NEUTROPHILS % 65.1 % (36.0-66.0); PLATELET COUNT, AUTOMATED 314 10^3/uL (150-450)
[2025-02-24 10:12] LABS: ALT/SGPT 45.0 U/L (7.0-40); AST/SGOT 51.0 U/L (<34); CALCIUM LEVEL 8.8 MG/DL (8.3-10.6); CARBON DIOXIDE LEVEL 24.0 MMOL/L (20-31); CHLORIDE LEVEL 112.0 MMOL/L (98-107); CHOLESTEROL LEVEL 145.0 MG/DL (<200); CHOLESTEROL RISK RATIO 3.01 (<5); CREATININE FOR GFR 0.72 MG/DL (0.55-1.30); GLOMERULAR FILTRATION RATE 88.8 (>39); LDL CHOLESTEROL 70.9 MG/DL (<100); NON-HDL-C 96.9 MG/DL; POTASSIUM SERUM 4.8 MMOL/L (3.5-5.1); PTH INTACT 37.7 PG/ML (18.5-88.0); SODIUM LEVEL 142.0 MMOL/L (136-145); TOTAL 25(OH) VITAMIN D 61.1 NG/ML (20.0-100.0); TRIGLYCERIDES LEVEL 130.0 MG/DL (<150)
== END ==
LOC: M LAB 08:08
PROVIDERS: ATTEND Physician Assistant Medical
DX: E78.00 Pure hypercholesterolemia, unspecified (principal); D68.61 Antiphospholipid syndrome; E55.9 Vitamin D deficiency, unspecified